=== PATIENT | male | born 2000 | race Caucasian/White ===

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

== ENCOUNTER → 2022-03-16 | Outpatient (CLI) | payer BC | LOC: COL.RAD 15:18 | DX: N50.3 Cyst of epididymis (principal); N50.89 Other specified disorders of the male genital organs ==